=== PATIENT | male | born 1955 | race Caucasian/White ===

== ENCOUNTER → 2016-06-06 | Outpatient (CLI) | payer BC ==
[~2016-06-06] MED LIST: ACET-1256 PO; AMX500 PO; ASPI-232 PO; CIPR-255 PO; CRS20 PO; DVN80 PO; FLM4 PO; NTRGSL/4 UT; NXM/40 PO; TPRSR/25 PO
[2016-06-06 10:42] LABS: BASO % 0.2 %; BASO ABS # 0.02 K/uL (0-0.2); COMPLETE YES; EOS % 0.8 %; HEMATOCRIT 41.1 % (42-52); IG% 0.2 %; LYMPH % 16.4 %; LYMPH ABS # 1.55 K/uL (1.2-3.4); MEAN CELL VOLUME 92.4 fL (80-100); MEAN CORPUSCULAR HEMOGLOBIN 32.4 pg (25-34); MONO % 12.4 %; PLATELET COUNT 283 K/uL (130-400); RED BLOOD COUNT 4.45 M/uL (4.7-6.1); WHITE BLOOD COUNT 9.44 K/uL (4.8-10.8)
[2016-06-06 11:11] LABS: ALT/SGPT 40 U/L (12-78); AST/SGOT 32 U/L (15-37); BLOOD UREA NITROGEN 29 mg/dl (7-18); BUN/CREATININE RATIO 24.5 (10-20); CALCIUM 9.7 mg/dl (8.5-10.1); CARBON DIOXIDE 25 mmol/L (21-32); CHLORIDE 105 mmol/L (98-107); CHOLESTEROL 145 mg/dl (0-200); GLUCOSE 93 mg/dl (70-99); POTASSIUM 4.1 mmol/L (3.5-5.1); SODIUM 138 mmol/L (136-145); TRIGLYCERIDES 90 mg/dl (0-150); VERY LOW DENSITY LIPOPROT CALC 18 mg/dl
[2016-06-06 11:14] LABS: ALB/GLOB RATIO 0.9 (0.9-2); ALKALINE PHOSPHATASE 106 U/L (45-117); HDL CHOLESTEROL 48 mg/dl; LDL CHOLESTEROL CALCULATED 79 mg/dl
[2016-06-06 11:20] LABS: BLOOD UREA NITROGEN 30 mg/dl (7-18)
== END | disposition home or self-care (01) ==
LOC: C.LABBC 08:06
PROVIDERS: ATTEND Internal Medicine Geriatric Medicine
DX: I25.10 Atherosclerotic heart disease of native coronary artery without angina pectoris (principal); I10 Essential (primary) hypertension; E78.5 Hyperlipidemia, unspecified

== ENCOUNTER → 2016-07-18 | Day surgery (SDC) | payer BC, OTHER ==
[2016-07-10 12:16] VITALS: BMI 28.0
[~2016-07-18] VITALS: Ht 180.3 cm; Wt 90.9 kg
[~2016-07-18] MED LIST changes: -ACET-1256 PO; -CIPR-255 PO; -FLM4 PO; +LIDOCAINE HCL 2% 2 ML VIAL (20MG/ML) ONE; +METOPROLOL TARTRATE 1 MG/ML VIAL ONE; -NXM/40 PO; +PROPOFOL IV EMULSION 10 MG/ML 20 ML VIAL IV ONE
--- NOTE | 2016-07-18 13:53 | Endo History and Physical ---
History & Physical Date of Service: July 18, 2016. Chief Complaint: History of colon polyps Referring Physician: Avery Pacheco History of Present Illness 61 yo CM who presents for colonoscopy secondary to history of colon polyps. Past Medical History Reflux, High Cholesterol, Sleep Apnea, CABG, Hypertension Past Surgical History Hx Cardiac Surgery: Yes (HEART CATH-NO STENTS, CABG-2 VESSELS AND MITRAL VALVE REPAIR) Hx Internal Defibrillator: No Hx Pacemaker: No Hx Abdominal Surgery: Yes (APPY, INGUINAL HERNIA) Hx of Implantable Prosthesis: No Hx Post-Op Nausea and Vomiting: No Hx Cancer Surgery: No Hx Thoracic Surgery: No Hx Orthopedic: Yes (RT RING FINGER AMPUTATION RECONSTRUCTION; RT KNEE ARTHROSCOPY, RT EBLOW SX) Hx Urinary Tract Surgery: Yes (GREENLIGHT TURP) Family History Colon CA Social History Smoking Status: Never Smoker Hx Substance Use: No Hx Alcohol Use: Yes ("SOCIALLY") Allergies Coded Allergies: No Known Allergies (Unverified , 07/10/16) Current Medications Reported Home Medications Medications Dose Route/Sig Max Daily Dose Days Date Category Diovan (Valsartan) 80 Mg Tab 80 Mg PO QAM 07/10/16 Reported Amoxicillin 500 Mg Cap 4 Cap PO UD PRN 03/02/15 Reported Nitrostat (Nitroglycerin) 0.4 Mg Tab 0.4 Mg UT PRN 03/02/15 Reported Metoprolol Succinate ER (Metoprolol Succinate) 25 Mg Tabcr 25 Mg PO QAM 03/02/15 Reported Crestor (Rosuvastatin Calcium) 20 Mg Tab 40 Mg PO HS 03/02/15 Reported Aspir-81 (Aspirin) 81 Mg Tab 81 Mg PO QAM 06/02/12 Reported Vital Signs Weight (Kilograms): 90.91 Height (Feet): 5 Height (Inches): 11 Physical Exam General Appearance: WD/WN, no apparent distress Respiratory/Chest: Auscultation: breath sounds normal Cardiovascular: Heart Auscultation: RRR Abdomen: Bowel Sounds: normal Inspection & Palpation: soft, non-distended, no tenderness, guarding & rebound Assessment and Plan Assessment: 61 yo CM who presents for colonoscopy secondary to history of colon polyps. Plan: Proceed with colonoscopy.
[2016-07-18 13:54] VITALS: Ht 180.3 cm; Wt 90.9 kg
--- NOTE | 2016-07-18 15:00 | GI REPORT ---
Procedure Date: 07/18/2016 2:26 PM Procedure: Colonoscopy Indications: High risk colon cancer surveillance: Personal history of colonic polyps Medicines: Monitored Anesthesia Care Complications: No immediate complications. Estimated Blood Loss: Estimated blood loss: none. Procedure: Pre-Anesthesia Assessment: - Prior to the procedure, a History and Physical was performed, and patient medications and allergies were reviewed. The patient's tolerance of previous anesthesia was also reviewed. The risks and benefits of the procedure and the sedation options and risks were discussed with the patient. All questions were answered, and informed consent was obtained. Prior Anticoagulants: The patient has taken aspirin, last dose was 1 day prior to procedure. ASA Grade Assessment: III - A patient with severe systemic disease. After reviewing the risks and benefits, the patient was deemed in satisfactory condition to undergo the procedure. After I obtained informed consent, the scope was passed under direct vision. Throughout the procedure, the patient's blood pressure, pulse, and oxygen saturations were monitored continuously. The On-site loaner was introduced through the anus and advanced to the terminal ileum. The colonoscopy was performed without difficulty. The patient tolerated the procedure well. The quality of the bowel preparation was good. The terminal ileum, ileocecal valve, appendiceal orifice, and rectum were photographed. Findings: A 3 mm polyp was found in the ascending colon. The polyp was sessile. The polyp was removed with a cold snare. Resection and retrieval were complete. Multiple small-mouthed diverticula were found in the sigmoid colon. Non-bleeding internal hemorrhoids were found during retroflexion. The hemorrhoids were small. Impression: - One 3 mm polyp in the ascending colon, removed with a cold snare. Resected and retrieved. - Diverticulosis in the sigmoid colon. - Non-bleeding internal hemorrhoids. Recommendation: - Resume previous diet. - Continue present medications. - Repeat colonoscopy for surveillance based on pathology results. - Return to GI office as previously scheduled. Kun Teague, 07/18/2016 3:00:09 PM This report has been signed electronically. Note Initiated On: 07/18/2016 2:26 PM I attest to the content of the Intraoperative Record and orders documented therein, exceptions below
--- NOTE | 2016-07-18 15:02 | Discharge Instructions ---
Endoscopy Patient Instructions Date / Procedure(s) Performed July 18, 2016. Colonoscopy Allergy Information Coded Allergies: No Known Allergies (Verified , 07/18/16) Discharge Date / Findings July 18, 2016. Colon polyp Diverticulosis Internal hemorrhoids Provider Instructions Activity Restrictions - No exercising or heavy lifting for 24 hours. - Do not drink alcohol the day of the procedure. - Do not drive a car or operate machinery until the day after the procedure. - Do not make any important decisions or sign important papers in 24 hours after the procedure. Following Day: - Return to full activity which may include returning to work/school. Diet Start your diet with liquids and light foods (jello, soup, juice, toast). Then eat your usual diet if not nauseated. Treatment For Common After Affects For mild abdominal pain, bloating, or excessive gas: - Rest - Eat lightly - Lie on right side Follow-Up Information Follow-up with DR. KYRIE GRAFF as scheduled Anesthesia Information What You Should Know You have had a procedure that required some medicine to reduce anxiety and discomfort. This treatment is called moderate sedation. After receiving the treatment, you may be sleepy, but you will be able to breathe on your own. The effects of the treatment may last for several hours. Follow these instructions along with Activity/Diet recommendations noted above: * Do NOT do anything where dizziness or clumsiness would be dangerous. * Rest quietly at home today, then you can be up and about tomorrow. * Have a responsible person stay with you the rest of today. * You may have had an I.V. today. If so, you may take the dressing off later today. Recommendations Call your doctor if: * Trouble breathing * Continuous vomiting for more than 24 hours * Temperature above 101 degrees * Severe abdominal pain or bloating * Pain not relieved by pain medicine ordered * There is increased drainage or redness from any incision * A large amount of rectal bleeding greater than 2-3 tablespoons. (If you had a polyp/s removed or have hemorrhoids, a small amount of blood - from the rectum is to be expected.) * You have any unanswered questions or concerns. IN THE EVENT OF A SERIOUS EMERGENCY, GO TO THE NEAREST EMERGENCY ROOM Your discharge instructions were prepared by provider Kun Teague. Patient Instructions Signature Page Loki Mckeon Patient (or Guardian) Signature/Date: I have read and understand the instructions given to me by my caregivers. Caregiver/RN/Doctor Signature/Date: The above-named patient and/or guardian has received patient instructions on this date. + Original Patient Signature Page (only) stays with chart. Please make copy for patient.
--- NOTE | 2016-07-18 15:09 | Anesthesiology Progress Note ---
Anesthesia Post Op Note Date & Time July 18, 2016 at 15:08 Vital Signs Pain Intensity: 0 Vital Signs Past 12 Hours Date Time Temp Pulse Resp B/P Pulse Ox O2 Delivery O2 Flow Rate FiO2 07/18/16 14:59 50 12 104/61 97 Room Air 07/18/16 14:01 36.7 53 16 138/78 95 Room Air Notes Mental Status: alert / awake / arousable, participated in evaluation Pt Amnestic to Procedure: Yes Nausea / Vomiting: adequately controlled Pain: adequately controlled Airway Patency, RR, SpO2: stable & adequate BP & HR: stable & adequate Hydration State: stable & adequate Anesthetic Complications: no major complications apparent Pt doing well.
[2016-07-18 15:29] VITALS: BP 108/74; PULSE 48; O2SAT 97
== END | disposition home or self-care (01) ==
LOC: C.GI 13:19
PROVIDERS: ATTEND Internal Medicine
DX: Z12.11 Encounter for screening for malignant neoplasm of colon (principal); D12.2 Benign neoplasm of ascending colon; K57.30 Diverticulosis of large intestine without perforation or abscess without bleeding; K64.8 Other hemorrhoids; Z86.010 Personal history of colon polyps; I10 Essential (primary) hypertension; E78.00 Pure hypercholesterolemia, unspecified; K21.9 Gastro-esophageal reflux disease without esophagitis; G47.30 Sleep apnea, unspecified; Z95.1 Presence of aortocoronary bypass graft; Z79.82 Long term (current) use of aspirin; Z79.899 Other long term (current) drug therapy; Z80.0 Family history of malignant neoplasm of digestive organs

== ENCOUNTER → 2017-06-23 | Outpatient (CLI) | payer BC ==
[~2017-06-23] MED LIST changes: -LIDOCAINE HCL 2% 2 ML VIAL (20MG/ML) ONE; -METOPROLOL TARTRATE 1 MG/ML VIAL ONE; +OPTIRAY 320 IV PRN; -PROPOFOL IV EMULSION 10 MG/ML 20 ML VIAL IV ONE
--- NOTE | 2017-06-23 13:48 | DIAGNOSTIC IMAGING REPORT ---
CHEST COMBO ANGIOGRAPHY CLINICAL HISTORY: 62 years-old Male presenting with ^I77.810 ^ASCENDING AORTA DILATATION, DILATED AORTIC ROOT. TECHNIQUE: Multidetector CT angiography of the chest was performed before and after the administration of intravenous contrast. 3-D volumetric and/or maximum intensity projection (MIP) images were subsequently reconstructed for review. IV contrast: 120 mL of Optiray 320. A dose lowering technique was used consistent with the principles of ALARA (as low as reasonably achievable). COMPARISON: None. CT DOSE (mGy.cm): The estimated cumulative dose is 1352.31 mGycm. FINDINGS: Voice Professor topogram: Median sternotomy wires and prosthetic mitral valve noted. Vasculature: The study is adequate for assessment of the aorta. Precontrast imaging demonstrates no evidence of intramural hematoma. Postcontrast imaging demonstrates atherosclerosis and aneurysmal dilatation of the ascending aorta, which measures 4.7 cm in diameter. The descending thoracic aorta is normal in caliber. No evidence of dissection or penetrating ulcer. Allowing for timing of the contrast bolus, no gross evidence of a filling defect within the pulmonary arteries to suggest embolus. Main pulmonary artery is not enlarged. No flattening of the interventricular septum. No intracardiac filling defect. No reflux of contrast into the hepatic veins. Remaining chest: On soft tissue windows, normal thyroid and thoracic inlet. No axillary, supraclavicular, hilar, or mediastinal lymphadenopathy. Postsurgical changes of mitral valve replacement. Coronary artery calcification. Normal heart size. Postsurgical changes of coronary artery bypass grafting. No pericardial or pleural effusion. Upper abdomen normal. On lung windows, minimal dependent changes likely atelectasis. No other focal nodule or infiltrate. Airways patent. On bone windows, degenerative changes of the spine. IMPRESSION: 1. 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 No evidence of acute aortic injury. No acute intrathoracic pathology. 2. Post surgical changes of coronary artery bypass grafting and mitral valve replacement. Electronically signed by: Rigoberto Moss M.D. 06/23/2017 1:47 PM Dictated Date/Time: 06/23/2017 1:41 PM
[2017-06-23 14:39] LABS: BASO % 0.3 %; BASO ABS # 0.02 K/uL (0-0.2); EOS % 1.1 %; EOS ABS # 0.07 K/uL (0-0.5); HEMOGLOBIN 14.3 g/dL (14.0-18.0); IG# 0.01 K/uL (0.00-0.02); LYMPH % 30.3 %; LYMPH ABS # 1.89 K/uL (1.2-3.4); MEAN CELL VOLUME 91.3 fL (80-100); MEAN CORPUSCULAR HEMOGLOBIN 31.1 pg (25-34); MEAN PLATELET VOLUME 10.7 fL (7.4-10.4); MONO % 9.3 %; MONO ABS # 0.58 K/uL (0.11-0.59); NEUT % 58.8 %; NEUT ABS # 3.66 K/uL (1.4-6.5); PLATELET COUNT 265 K/uL (130-400); RED CELL DISTRIBUTION WIDTH CV 12.9 % (11.5-14.5); RED CELL DISTRIBUTION WIDTH SD 43.2 fL (36.4-46.3); WHITE BLOOD COUNT 6.23 K/uL (4.8-10.8)
[2017-06-23 15:16] LABS: ALBUMIN 3.8 gm/dl (3.4-5.0); ALT/SGPT 37 U/L (12-78); AST/SGOT 22 U/L (15-37); BLOOD UREA NITROGEN 19 mg/dl (7-18); CALCIUM 9.4 mg/dl (8.5-10.1); CARBON DIOXIDE 23 mmol/L (21-32); CREATININE 1.14 mg/dl (0.60-1.40); GLUCOSE 82 mg/dl (70-99); POTASSIUM 3.9 mmol/L (3.5-5.1); SODIUM 136 mmol/L (136-145)
[2017-06-23 15:22] LABS: ALKALINE PHOSPHATASE 66 U/L (45-117); CHOLESTEROL 238 mg/dl (0-200); LDL CHOLESTEROL CALCULATED 144 mg/dl; TOTAL PROTEIN 7.7 gm/dl (6.4-8.2)
== END | disposition home or self-care (01) ==
LOC: C.CTS 13:02
PROVIDERS: ATTEND Internal Medicine Cardiovascular Disease
DX: I77.810 Thoracic aortic ectasia (principal); I10 Essential (primary) hypertension; R97.20 Elevated prostate specific antigen [PSA]; E78.5 Hyperlipidemia, unspecified; G47.33 Obstructive sleep apnea (adult) (pediatric); M19.90 Unspecified osteoarthritis, unspecified site; Z95.5 Presence of coronary angioplasty implant and graft; Z95.2 Presence of prosthetic heart valve

== ENCOUNTER 2024-04-12 07:24 | Inpatient (IN) ==
--- OUTSIDE RECORDS SUMMARY | 2024-04-12 07:36 | External Medical Summary | Summary of Care ---
Author Name Unknown Organization [facility] Address [address] [place] [address] Phone [phone] Care Team Providers Care Motion Picture Narrator Name Role Phone Avery Pacheco MD Primary Care Provider [phone] Encounter Details Date Type Department Care Team (Late st Contact Info) Description 03/29/2024 Population Health External Data Unspecified Department Allergies No known active allergiesdocumented as of this encounter (statuses as of 03/29/2024) Medications valsartan (DIOVAN) 80 MG Tablet Take 80 mg by mouth daily. 1 tab daily 3 03/27/2015 Active Oxycodone-Aceta minophen 7.5-325 MG per tablet 1 tab every 4 hours as needed for pain 0 03/16/2015 Active Phenazopyridine HCl 200 MG Tablet 1 tab daily as needed for bladder pain 0 03/16/2015 Active Tadalafil 5 MG Oral Tablet (Cialis) take 1 tablet by mouth once daily 90 Tablet 2 03/23/2024 7:17 AM EST 11/03/2023 Active Losartan Potassium 50 MG Oral Tablet (Cozaar) take 1 tablet by mouth once daily in the morning 90 Tablet 2 01/20/2024 Active Ezetimibe 10 MG Oral Tablet (Zetia) take 1 tablet by mouth once daily 90 Tablet 06/04/2023 Active Celecoxib 200 MG Oral Capsule (CeleBREX) Take 1 Capsule by mouth daily. 90 Capsule 1 03/23/2024 7:17 AM EST 09/04/2023 Active Metoprolol Succinate ER 50 MG Oral Tablet Extended Release 24 Hour (toPROL XL) take 1 tablet by mouth once daily in the morning 90 Tablet 1 03/23/2024 7:17 AM EST 09/02/2023 Active Rosuvastatin Calcium 40 MG Oral Tablet (Crestor) take 1 tablet by mouth daily in the evening 90 Tablet 3 03/26/2024 1:42 PM EST 03/23/2024 Active documented as of this encounter (statuses as of 03/29/2024) Active Problems Problem Noted Date Diagnosed Date Multiple joint pain 05/29/2010 MURMURS AORTIC 05/29/2010 documented as of this encounter (statuses as of 03/29/2024) Social History Tobacco Use Types Packs/Day Years Used Date Smoking Tobacco: Never Comments:chews tobacco Alcohol Use Standard Drinks/Week Comments Yes 0 (1 standard drink = 0.6 oz pur e alcohol) social Utilities Answer Date Recorded Do you have trouble paying y our heating, water, or electric bill? (Adult - for ages 18 years and over) Not on file 08/26/2023 Is your family able to pay t he heat, water, or electric bill? (Household - for ages 0-17 years) Not on file 08/26/2023 Does your family have access to good internet? (Household - for ages 0-17 years) Not on file 08/26/2023 Social Connections Answer Date Recorded How often do you feel lonely or isolated from those around you? (Adult - for ages 18 years and over) Not on file 08/26/2023 Comments Unknown Sex and Gender Information Value Date Recorded Sex Assigned at Not on file Legal Sex Male 9:37 AM EDT Gender Identity Not on file Sexual Orientation Not on file documented as of this encounter Plan of Treatment Health Maintenance Due Date Last Done Comments Lipid Panel 1954 Depression Screening 1966 Hepatitis C Screening 02/29/1972 DTap/Tdap Vaccines (1 - Tdap) 1973 Mammogram 1994 Cologuard 1999 Colonoscopy 1999 Colorectal Cancer Screening 1999 Fecal Occult Blood Test 1999 Sigmoidoscopy 1999 Pneumococcal Vaccine: 50+ Ye ars (1 of 1 - PCV) 02/29/2004 Zoster Vaccines (1 of 2) 02/29/2004 COVID-19 Vaccine ( - 2023-2 5 season) 2023 Influenza Vaccine (FLU shot) (#1) 2023 HPV (Gardasil) Vaccine Aged Out No lo nger eligible based on patient's age to complete this topic Hepatitis B Vaccine Aged Out No longe r eligible based on patient's age to complete this topic MENINGOCOCCAL (MENACTRA/MENVEO) Aged Out No longer eligible based on patient's age to complete this topic documented as of this encounter Medical Devices Not on filedocumented as of this encounter Care Teams Motion Picture Narrator Relationship Specialty Start Date End Date Avery Pacheco MD [address] [facility] [address] [place] [address] PCP - General 07/16/00 documented as of this encounter
[2024-04-12 08:37] LABS: Basophils # (auto) 0.03 K/uL (0.00-0.20); Basophils % (auto) 0.1 %; Hematocrit (blood only) 42.3 % (42.0-52.0); Hemoglobin 14.8 g/dl (14.0-18.0); Immature Granulocytes # (auto) 0.11 K/uL (0.01-0.20); Immature Granulocytes % (auto) 0.5 %; Lymphocytes % (auto) 5.5 %; Mean Corpuscular Hemoglobin 32.2 pg (25.0-34.0); Mean Corpuscular Volume 92.2 fL (80.0-100.0); Mean Platelet Volume 10.7 fL (9.4-12.4); Monocytes % (auto) 8.4 %; Neutrophils # (auto) 17.18 K/uL (1.40-6.50); Neutrophils % (auto) 85.5 %; Platelet Count 223 K/uL (130-400); RDW Coefficient of Variation 12.4 % (11.5-14.5); RDW Standard Deviation 42.3 fL (36.4-46.3); Red Blood Count 4.59 M/uL (4.70-6.10); White Blood Count 20.12 K/ul (4.8-10.8)
[2024-04-12 08:47] LABS: Albumin Globulin Ratio 1.2 (0.9-2); Albumin Level 4.1 gm/dl (3.4-5.0); BUN Creatinine Ratio 13.1 (10-20); Bilirubin,Total 0.9 mg/dl (0.2-1.0); Calcium 10.5 mg/dl (8.6-10.3); Creatinine Clr Calc Pharmacy 79.2 ml/min; Globulin 3.5 gm/dl (2.5-4.0); Potassium 3.7 mmol/L (3.5-5.1); Total Protein 7.6 gm/dl (6.0-8.3)
--- NOTE | 2024-04-12 08:48 | Emergency Department Note ---
Impression & Plan Acute UTI (urinary tract infection), Acute urinary retention, Leukocytosis ED Provider Note HISTORY OF PRESENT ILLNESS: Patient is a 69-year-old male presenting with dysuria and inability to void. Patient reports that symptoms have been ongoing since Friday (3 days). He states that he went to [facility] 2 days ago and was prescribed Pyridium and Keflex. He reports that he has been on these medications but his symptoms been getting worse. He states that he is unable to void secondary to "excruciating" pain. He states that he has noticed some blood in his urine. He has had intermittent fevers for the last 48 hours. His last dose of an antipyretic was yesterday. He states he is got lower abdominal pain, specifically in the suprapubic region. He states that he is feels he is unable to fully empty his bladder secondary to the significant pain with peeing. ROS: as above PHYSICAL EXAM: Constitutional: Patient appears in no acute distress. HENT: Head: Normocephalic and atraumatic. Eyes: EOMI, PERRL Mouth/Throat: Mucous membranes moist. Neck: Trachea midline. Neck supple. Cardiovascular: RRR, No murmurs, rubs or gallops. Intact distal pulses. Pulmonary/Chest: No respiratory distress. Breath sounds clear and equal bilaterally. No wheezes or rales. Abdominal: Abdomen soft, no rebound or guarding. Suprapubic tenderness to palpation. Musculoskeletal: No edema, tenderness or deformity noted. Skin: Warm and dry. No rash, erythema, pallor or cyanosis Psychiatric: Appropriate mood and affect for situation. Neurological: Alert and keenly responsive. CN II-XII grossly intact, moving all extremities equally and fully. MDM: - Vitals signs stable. - History obtained via patient. History as above. - Chronic conditions affecting care: BPH; CAD (S/p CABG); HTN; HLD - Differential diagnoses include, but are not limited to: UTI; urinary retention; hydronephrosis; pyelonephritis; ureteral stone - Order placed for continuous cardiac monitoring. At this time, monitor showed rate of 68 bpm with normal sinus rhythm, per my interpretation. - External medical records reviewed. Primary care visit note dated 11/03/2023 was reviewed. Patient was seen for his annual visit. - Laboratory workup interpreted by myself showed leukocytosis (WBC 20.12); normal electrolytes other than hypercalcemia (Ca 10.5); normal procalcitonin - UA showed evidence of infection. Patient given 2 g IV Rocephin. Urine culture was sent. - CT abdomen/pelvis with IV contrast showed an enlarged prostate and mildly distended bladder with mild bladder wall thickening. - Nursing attempted to place a De catheter to help decompress the patient's distended bladder. They tried a 16 Vietnamese regular De catheter and a 16 Vietnamese coud catheter. However, significant resistance was met at the prostate and they were unable to pass the catheter. - Discussed case with urologist health education director, Dr. Gomez, at 10:55. He recommended attempting an 18 or 22-day. He states that if this does not work patient may need a procedure in the OR. - Patient given 4 mg IV zofran, 500 cc NS and 1g IV tylenol on arrival for symptomatic management - Discussion was had with case manager specialist about patient's case and need for admission - Hospitalist,Dr. Barrientos, consulted for admission [facility] ASSESSMENT AND PLAN: Diagnosis: Acute UTI; urinary retention; leukocytosis Plan: Admit Past Med/Surg History Problem List (Updated 04/12/24 @ 11:24 by Shannan Simon MD) Leukocytosis (Acute) Acute urinary retention (Acute) Acute UTI (urinary tract infection) (Acute) Large hiatal hernia Hyperlipidemia Erectile dysfunction Hx of CAB[place] x2 [place]2012[place] [place] of colon polyps Diverticulum of bladder Health care maintenance BPH with obstruction/lower urinary tract symptoms Chronic venous insufficiency Arthritis of right acromioclavicular joint Insomnia S/P mitral valve repair during CABG in 2012 at [facility] Prediabetes HbA1C 6.1% (12/2019) patient states related to taking oral steroids at the time. no problem since stopping the steroids. Osteoarthritis BPH (benign prostatic hyperplasia) Obstructive sleep apnea does not use device Mild cognitive impairment Neuropsych and neurology evaluation in the past. Brain MRI (12/23) demonstrating small vessel disease with small focus L thalamus suggestive of previous microhemorrhage Hypertension Ascending aortic aneurysm Mitral valve regurgitation S/p mitral valve repair (2012) Coronary artery disease S/p CABGx2 (2012) w/ GONCALVES to LAD, saphenous vein graft to diagonal Medical History Epigastric pain Postherpetic neuralgia Screening PSA (prostate specific antigen) Shingles outbreak Abdominal pain, acute, right upper quadrant Cognitive and behavioral changes Sleep apnea History of COVID-19 (~02/2020) Right rotator cuff tear Osteoarthritis of right knee Arthritis of right knee Hiatal hernia Bladder stone Tear of biceps muscle Obesity Diverticular disease GERD (gastroesophageal reflux disease) Degenerative disc disease Left inguinal hernia Depression Surgical History History of repair of rotator cuff History of right knee joint replacement (~03/2020) History of cardiac cath History of prostate biopsy Hx of inguinal hernia surgery (03/18/19) History of esophagogastroduodenoscopy (EGD) History of colonoscopy Hx of transurethral resection of prostate S/P right knee arthroscopy 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 Hx of appendectomy H/O hernia repair Family History Unknown Colon cancer Coronary heart disease Heart disease Hypertension Father Myocardial infarction Grandfather (Maternal) Prostate cancer Mother Colon cancer Other No family history of adverse response to anesthesia Denies family history of Ovarian cancer Breast cancer Social History Smoking Status: Never smoker Second Hand Exposure: No; Do You Dip or Chew Tobacco: No (hx of quit 2012); Hx Alcohol Use: Yes Alcohol type: beer Alcohol Intake Frequency: Monthly or Less Hx Substance Use: No Preferred Language: Korean Communication Ability: Effective Visual Impairment: No Limitations Hearing Ability: Normal Corporate Planning Manager Required: No Beliefs That Will Affect Care: None marital status: Current Living Situation: Spouse current occupational status: employed current occupation: Clerk [employer] Feels Safe at Home: Yes Childhood Exposure to Second-Hand Smoke: Yes Dental Care, Regularly: Yes Physical Activity Frequency: Daily Seatbelt Use: always Sunscreen Use: No Assistive Devices: Denture - Upper, Denture - Lower and Glasses Allergies Allergies Allergy/AdvReac Type Severity Reaction Status Date / Time atorvastatin [From Lipitor] AdvReac Mild myalgia Verified 02/16/24 15:28 Home Meds Home Medications Medication Instructions Recorded Confirmed aspirin 81 mg tablet,delayed 81 mg PO QAM 02/16/19 04/12/24 release (Adult Low Dose Aspirin) acetaminophen 500 mg capsule 500 mg PO DAILY PRN Pain 11/04/23 04/12/24 metoprolol succinate 50 mg 25 mg PO QAM 02/16/24 04/12/24 tablet,extended release 24 hr cephalexin 500 mg capsule 500 mg PO BID 04/12/24 04/12/24 phenazopyridine 100 mg tablet 100 mg PO DIRECTED PRN Other 04/12/24 04/12/24 Previous Rx's Medication Instructions Recorded celecoxib 200 mg capsule 200 mg PO DAILY #90 caps 10/20/23 sildenafil (pulm.hypertension) 20 20 mg PO DAILY PRN sexual activity 11/03/23 mg tablet #90 tabs tadalafil 5 mg tablet 5 mg PO DAILY #90 tabs 11/03/23 amoxicillin 500 mg capsule 500 mg PO UD PRN dental procedures 11/04/23 #4 caps esomeprazole magnesium 40 mg 40 mg PO DAILY #90 caps 11/04/23 capsule,delayed release ezetimibe 10 mg tablet (Zetia) 10 mg PO DAILY #90 tabs 11/18/23 losartan 50 mg tablet 50 mg PO QAM #90 tabs 01/20/24 rosuvastatin 40 mg tablet 40 mg PO QPM #90 tabs 03/23/24 Results & Data (ED) Vital Signs Vital Signs - 24 hr 04/12/24 07:31 04/12/24 08:02 04/12/24 08:04 Temperature 36.8 C Temperature Source Oral Pulse Rate 86 79 Pulse Rate [Apical] Respiratory Rate 20 18 Respiratory Effort / Characteristics Non-Labored Spontaneous Non-Labored Respiratory Depth Normal Normal Respiratory Pattern Regular Blood Pressure 131/77 Blood Pressure Mean 95 Pulse Oximetry 95 Oxygen Delivery Method Room Air Sepsis Recent Fever Within 48 Hours No Sepsis New/Unexplained Change in Mental Status N/A Sepsis Action Taken by Nursing No Action Required 04/12/24 10:00 Temperature Temperature Source Pulse Rate Pulse Rate [Apical] 68 Respiratory Rate 18 Respiratory Effort / Characteristics Respiratory Depth Normal Respiratory Pattern Blood Pressure Blood Pressure Mean Pulse Oximetry 96 Oxygen Delivery Method Room Air Sepsis Recent Fever Within 48 Hours Sepsis New/Unexplained Change in Mental Status Sepsis Action Taken by Nursing Laboratory Data 04/12/24 08:00 04/12/24 08:00 Lab Results 04/12/24 Range/Units 08:00 WBC 20.12 H (4.8-10.8) K/ul RBC 4.59 L (4.70-6.10) M/uL Hgb 14.8 (14.0-18.0) g/dl Hct 42.3 (42.0-52.0) % MCV 92.2 (80.0-100.0) fL MCH 32.2 (25.0-34.0) pg MCHC 35.0 (32.0-36.0) g/dL RDW Std Deviation 42.3 (36.4-46.3) fL RDW Coeff of Noah 12.4 (11.5-14.5) % Plt Count 223 (130-400) K/uL MPV 10.7 (9.4-12.4) fL Immature Gran % (Auto) 0.5 % Neut % (Auto) 85.5 % Lymph % (Auto) 5.5 % [place] % (Auto) 8.4 % Eos % (Auto) 0.0 % Baso % (Auto) 0.1 % Neut # (Auto) 17.18 H (1.40-6.50) K/uL Lymph # (Auto) 1.10 L (1.20-3.40) K/uL [place] # (Auto) 1.70 H (0.11-0.59) K/uL Eos # (Auto) 0.00 (0.00-0.50) K/uL Baso # (Auto) 0.03 (0.00-0.20) K/uL Immature Gran # (Auto) 0.11 (0.01-0.20) K/uL Sodium 135 L (136-145) mmol/L Potassium 3.7 (3.5-5.1) mmol/L Chloride 101 (98-107) mmol/L Carbon Dioxide 25 (21-32) mmol/L Anion Gap 9 (3-11) BUN 14 (6-23) mg/dl Creatinine 1.07 (0.6-1.4) mg/dl Est Cr Clr Drug Dosing 79.2 ml/min eGFR 74.65 BUN/Creatinine Ratio 13.1 (10-20) Glucose 121 H (70-99(Fasting)) mg/dl Calcium 10.5 H (8.6-10.3) mg/dl Total Bilirubin 0.9 (0.2-1.0) mg/dl AST 20 (13-39) U/L ALT 23 (7-52) U/L Alkaline Phosphatase 72 (34-104) U/L Total Protein 7.6 (6.0-8.3) gm/dl Albumin 4.1 (3.4-5.0) gm/dl Globulin 3.5 (2.5-4.0) gm/dl Albumin/Globulin Ratio 1.2 (0.9-2) Procalcitonin 0.25 (0-0.5) ng/ml Urine Color Dark Yellow Urine Appearance Cloudy A (Clear) Urine pH 6.5 (4.5-7.5) Ur Specific [place] 1.017 (1.000-1.030) Urine Protein 2+ H (Negative) Urine Glucose (UA) Negative (Negative) Urine Ketones 1+ H (Negative) Urine Blood 1+ H (Negative) Urine Nitrite Positive A (Negative) Urine Bilirubin Negative (Negative) Urine Urobilinogen Negative (Negative) Ur Leukocyte Esterase 2+ H (Negative) Urine WBC (Auto) >50 H (0-5) /hpf Urine RBC (Auto) 6-10 H (0-2) /hpf U Hyaline Cast (Auto) 3-5 H (0-2) /lpf U Epithel Cells (Auto) 0-2 (0-2) /hpf Urine Bacteria (Auto) None Seen (None Seen) Administered Medications Discontinued Medications Sodium Chloride (Nss) 500 mls @ 999 mls/hr IV .Q31M ONE Stop: 04/12/24 09:15 Last Infusion: 04/12/24 09:38 Dose: Infused Documented By: Admin: 04/12/24 08:55 Dose: 999 mls/hr Documented By: FACUNDO Acetaminophen (Ofirmev) 1,000 mg in 100 mls @ 400 mls/hr IV NOW STA Stop: 04/12/24 08:59 Last Infusion: 04/12/24 09:21 Dose: Infused Documented By: Admin: 04/12/24 08:55 Dose: 400 mls/hr Documented By: FACUNDO Ceftriaxone Sodium (Rocephin) 2,000 mg in 50 mls @ 100 mls/hr IV NOW STA Stop: 04/12/24 10:16 Last Infusion: 04/12/24 10:27 Dose: Infused Documented By: Admin: 04/12/24 09:56 Dose: 100 mls/hr Documented By: FACUNDO Ioversol (Optiray 320 100ml) 94 ml IV ONCE ONE Stop: 04/12/24 09:19 Last Admin: 04/12/24 09:18 Dose: 94 ml Documented By: AQSIM Ondansetron HCl (Ondansetron Inj 2 Mg/Ml 2 Ml Vial) 4 mg IV NOW STA Stop: 04/12/24 08:46 Last Admin: 04/12/24 08:55 Dose: 4 mg Documented By: FACUNDO Imaging Data Radiologist's Impression: Abdomen/Pelvis CT 04/12/24 08:45 CT OF THE ABDOMEN AND PELVIS WITH CONTRAST CLINICAL HISTORY: lower abd pain; UTI COMPARISON STUDY: CT of the abdomen and pelvis October 22, 2022. TECHNIQUE: Following IV administration of 94 mL of Optiray, axial images of the abdomen and pelvis were obtained from the lung bases to the proximal femurs. Images were reviewed in the axial, sagittal, and coronal planes. IV contrast was administered without complication. Automated exposure control was utilized for the study. A dose lowering technique was utilized adhering to the principles of ALARA. CT DOSE: 1405.41 mGy.cm FINDINGS: Visualized portions of the lung bases are unremarkable. There is a prosthetic mitral valve and a moderate sized hernia. No pneumatosis, free air or portal venous gas is present. Liver, spleen, adrenal glands, kidneys and pancreas are unremarkable. There is no biliary or pancreatic ductal dilatation. The prostate is enlarged, measuring 7.2 cm in transverse dimension. The bladder is mildly distended. Bladder wall thickening is similar to prior exam. There is mild adjacent stranding. There are no urinary calculi. There is no hydronephrosis. There is no evidence for a bowel obstruction. Note is made of extensive colonic diverticulosis without evidence for acute diverticulitis. There is no biliary or pancreatic ductal dilatation. No lymphadenopathy. IMPRESSION: 1. Enlarged prostate. Mildly distended bladder with mild bladder wall thickening and minimal adjacent stranding which be correlated with urinalysis. No hydronephrosis. No urinary calculi. 2. Extensive colonic diverticulosis. No evidence for acute diverticulitis. 3. No bowel obstruction. ACT 112: Negative or not required by law. Electronically signed by: Lucas Meza M.D. 04/12/2024 9:57 AM Discharge Plan Visit Data Chief Complaint: Unable to Void Stated Complaint: UNABLE TO VOID X 4 DAYS ED Provider: Shannan Simon Discharge Problem: Acute UTI (urinary tract infection), Acute urinary retention, Leukocytosis Forms Stand Alone Forms: [facility] Prescriptions Prescriptions: No Action celecoxib 200 mg capsule 200 mg PO DAILY Qty: 90 1RF ezetimibe [Zetia] 10 mg tablet 10 mg PO DAILY Qty: 90 3RF losartan 50 mg tablet 50 mg PO QAM Qty: 90 3RF rosuvastatin 40 mg tablet 40 mg PO QPM Qty: 90 3RF acetaminophen 500 mg capsule 500 mg PO DAILY PRN (Reason: Pain) esomeprazole magnesium 40 mg capsule,delayed release(DR/EC) 40 mg PO DAILY Qty: 90 1RF amoxicillin 500 mg capsule 500 mg PO UD PRN (Reason: dental procedures) Qty: 4 0RF Rx Instructions: Take 4 capsules orally 1 hour prior to dental procedure. metoprolol succinate 50 mg tablet extended release 24 hr 25 mg PO QAM tadalafil 5 mg tablet 5 mg PO DAILY Qty: 90 3RF sildenafil (pulm.hypertension) 20 mg tablet 20 mg PO DAILY PRN (Reason: sexual activity) Qty: 90 2RF Rx Instructions: Take 30 to 60 minutes prior to sexual activity. Start with 1 tab, can increase by 1 at a time up to maximum of 4 tabs (80 mg) for desired effect aspirin [Adult Low Dose Aspirin] 81 mg tablet,delayed release (DR/EC) 81 mg PO QAM phenazopyridine 100 mg tablet 100 mg PO DIRECTED PRN (Reason: Other) cephalexin 500 mg capsule 500 mg PO BID Referrals Referrals: Hans Snyder MD [Primary Care Provider] -
[2024-04-12] MEDS: SODIUM CHLORIDE 0.9% 500 ML IV ONE (08:55)
[2024-04-12] MEDS: ONDANSETRON INJ 2 MG/ML 2 ML VIAL IV STA (08:55)
[2024-04-12] MEDS: ACETAMINOPHEN 1,000 MG/100 ML VIAL IV STA (08:55)
[2024-04-12 09:14] LABS: Appearance Urine Cloudy (Clear); Bacteria Urine Automated None Seen (None Seen); Bilirubin Urine Negative (Negative); Blood Urine 1+ (Negative); Color Urine Dark Yellow; Epithelial Cell Urine Auto 0-2 /hpf (0-2); Glucose Urine UA Negative (Negative); Ketones Urine 1+ (Negative); Leukocyte Esterase Urine 2+ (Negative); Nitrite Urine Positive (Negative); Protein Urine 2+ (Negative); Specific Gravity Urine 1.017 (1.000-1.030); Urobilinogen Urine Negative (Negative); WBC Urine Automated >50 /hpf (0-5); pH Urine 6.5 (4.5-7.5)
[2024-04-12] MEDS: OPTIRAY 320 100ml IV ONE (09:18)
[2024-04-12] MEDS: cefTRIAXone SODIUM 2,000 MG/50 ML BAG IV STA (09:56)
--- NOTE | 2024-04-12 09:59 | CT Scan Report ---
CT OF THE ABDOMEN AND PELVIS WITH CONTRAST CLINICAL HISTORY: lower abd pain; UTI COMPARISON STUDY: CT of the abdomen and pelvis October 22, 2022. TECHNIQUE: Following IV administration of 94 mL of Optiray, axial images of the abdomen and pelvis we re obtained from the lung bases to the proximal femurs. Images were reviewed in the axial, sagittal, and coronal planes. IV contrast was administered without complication. Automated exposure control wa s utilized for the study. A dose lowering technique was utilized adhering to the principles of ALARA . CT DOSE: 1405.41 mGy.cm FINDINGS: Visualized portions of the lung bases are unremarkable. There is a prosthetic mitral valve and a moderate sized hernia. No pneumatosis, free air or portal venous gas is present. Liver, spleen, adrenal glands, kidneys and pancreas are unremarkable. There is no biliary or pancreatic ductal dila tation. The prostate is enlarged, measuring 7.2 cm in transverse dimension. The bladder is mildly dis tended. Bladder wall thickening is similar to prior exam. There is mild adjacent stranding. There are no urinary calculi. There is no hydronephrosis. There is no evidence for a bowel obstruction. Note i s made of extensive colonic diverticulosis without evidence for acute diverticulitis. There is no betina iary or pancreatic ductal dilatation. No lymphadenopathy. IMPRESSION: 1. Enlarged prostate. Mildly distended bladder with mild bladder wall thickening and minimal adjacent stranding which be correlated with urinalysis. No hydronephrosis. No urinary calculi. 2. Extensive colonic diverticulosis. No evidence for acute diverticulitis. 3. No bowel obstruction. ACT 112: Negative or not required by law. Electronically signed by: Lucas Meza M.D. 04/12/2024 9:57 AM
--- NOTE | 2024-04-12 10:53 | History & Physical Report ---
Date of Service April 12, 2024 Assessment & Plan (1) Acute UTI (urinary tract infection): (2) Acute urinary retention: (3) Hematuria: (4) BPH (benign prostatic hyperplasia): Plan Loki is a pleasant 69yo male with PMH of CABG, mitral valve repair, BPH, DANUTA, HTN, HLD, and CAD. He presented on 04/12 for dysuria, difficulty voiding, and burning with urination that began on Sunday 04/09. He originally went to [facility] on Friday, and was prescribed cephalexin and phenazopyridine for UTI. However, despite taking these medications, his symptoms have progressively worsened. He denies prior history of UTIs or kidney stones. He is still able to void approximately a "quarter cup" of urine, but this leads to severe, sharp pain, and he cannot void without screaming. He characterizes it as "peeing razor blades". #UTI Failure of outpatient antibiotics on Keflex (Rx 04/10) Leukocytosis at 20.12 with neutral predominance; afebrile on arrival, but reported fever/chills at home Blood cultures ordered, pending Procalcitonin WNL UA dark yellow; without bacteria (but in the setting of recent Keflex) No prior UCx on record Ceftriaxone 2000 mg IV q24h for now Acetaminophen as needed for pain/fever Continue phenazopyridine Follow current UCx #Difficulty voiding A/P CT revealed enlarged prostate and mildly distended bladder No evidence of urinary calculi, however A/P CT was performed with contrast Nursing staff has been unable to place a De in the ED Urology consult appreciated N.p.o. for now in the event that patient requires scope Continue tadalafil #Gross hematuria Hgb 14.8 on arrival Patient reports he takes aspirin daily for history of CAD/CABG He denies history of heart stents Hold aspirin for now Chronic stable issues: #HTNlosartan, metoprolol #GERDesomeprazole #HLDezetimibe, rosuvastatin #BPHtadalafil Disposition: Admit to [facility] Full code Regular diet VTE PPx: SCDs History of Present Illness Chief Complaint: Unable to void, burning with urination Primary Care Provider: Hans Snyder MD Loki is a pleasant 69yo male with PMH of CABG, mitral valve repair, BPH, DANUTA, HTN, HLD, and CAD. He presented on 04/12 for dysuria, difficulty voiding, and burning with urination that began on Sunday 04/09. He originally went to [facility] on Friday, and was prescribed cephalexin and phenazopyridine for UTI. However, despite taking these medications, his symptoms have progressively wo rsened. He denies prior history of UTIs or kidney stones. He is still able to void approximately a "quarter cup" of urine, but this leads to severe, sharp pain, and he cannot void without screaming. He characterizes it as "peeing razor blades". Patient took his regular morning medicine today; no recent change in medications. He has been experiencing fevers at home; while he has not measured his temperature, he had a low-grade fever at acute care on Friday (100.1 F), and has been having worsening fevers and chills since. He has been taking Tylenol at home for his symptoms. No prior episodes of urinary continence like this. He does follow-up with Dr. Pete urology outpatient. He rates his pain 2/10 at present, and describes it as a suprapubic fullness. He rates it 10/10 while peeing. No sick contacts. No submental oxygen or CPAP at baseline. He does take tadalafil daily for his prostate. Additionally he does have occasional right flank pain and right lower back pain when walking, but he is unsure if this is secondary to his chronic back problems. He denies smoking or recent alcohol use. He is a former tobacco chewer, but quit in 2012. Patient's vitals are stable at time admission. ED course: Zofran 4 mg IV Acetaminophen 1000 mg IV NSS 500 mL IV Ceftriaxone 2000 mg IV ROS: Patient endorses fevers, chills, body aches, sweating, lightheadedness with standing, MAXWELL, dry cough, right flank and lower back pain, nausea, diarrhea x 1 day, blood in urine, severe dysuria, and burning with urination. Patient denies chest pain, SOB, chest palpitations, pleuritic CP, blood in stool, saddle anesthesia, or numbness/tingling down the legs. Allergies Allergy/AdvReac Type Severity Reaction Status Date / Time atorvastatin [From Lipitor] AdvReac Mild myalgia Verified 02/16/24 15:28 Home Medications Medication Instructions Recorded Confirmed Type aspirin 81 mg tablet,delayed 81 mg PO QAM 02/16/19 04/12/24 History release (Adult Low Dose Aspirin) celecoxib 200 mg capsule 200 mg PO DAILY #90 caps 10/20/23 04/12/24 Rx sildenafil (pulm.hypertension) 20 20 mg PO DAILY PRN sexual activity 11/03/23 04/12/24 Rx mg tablet #90 tabs tadalafil 5 mg tablet 5 mg PO DAILY #90 tabs 11/03/23 04/12/24 Rx acetaminophen 500 mg capsule 500 mg PO DAILY PRN Pain 11/04/23 04/12/24 History amoxicillin 500 mg capsule 500 mg PO UD PRN dental procedures 11/04/23 04/12/24 Rx #4 caps esomeprazole magnesium 40 mg 40 mg PO DAILY #90 caps 11/04/23 04/12/24 Rx capsule,delayed release ezetimibe 10 mg tablet (Zetia) 10 mg PO DAILY #90 tabs 11/18/23 04/12/24 Rx losartan 50 mg tablet 50 mg PO QAM #90 tabs 01/20/24 04/12/24 Rx metoprolol succinate 50 mg 25 mg PO QAM 02/16/24 04/12/24 History tablet,extended release 24 hr rosuvastatin 40 mg tablet 40 mg PO QPM #90 tabs 03/23/24 04/12/24 Rx cephalexin 500 mg capsule 500 mg PO BID 04/12/24 04/12/24 History phenazopyridine 100 mg tablet 100 mg PO DIRECTED PRN Other 04/12/24 04/12/24 History Past Med/Surg History Problem List (Updated 04/12/24 @ 11:35 by Demetris Ibarra PA-C) Hematuria Leukocytosis (Acute) Acute urinary retention (Acute) Acute UTI (urinary tract infection) (Acute) Large hiatal hernia Hyperlipidemia Erectile dysfunction Hx of CABG CABG x2 (2012)/[facility] History of colon polyps Diverticulum of bladder Health care maintenance BPH with obstruction/lower urinary tract symptoms Chronic venous insufficiency Arthritis of right acromioclavicular joint Insomnia S/P mitral valve repair during CABG in 2012 at [facility] Prediabetes HbA1C 6.1% (12/2019) patient states related to taking oral steroids at the time. no problem since stopping the steroids. Osteoarthritis BPH (benign prostatic hyperplasia) Obstructive sleep apnea does not use device Mild cognitive impairment Neuropsych and neurology evaluation in the past. Brain MRI (12/23) demonstrating small vessel disease with small focus L thalamus suggestive of previous microhemorrhage Hypertension Ascending aortic aneurysm Mitral valve regurgitation S/p mitral valve repair (2012) Coronary artery disease S/p CABGx2 (2012) w/ GONCALVES to LAD, saphenous vein graft to diagonal Medical History Epigastric pain Postherpetic neuralgia Screening PSA (prostate specific antigen) Shingles outbreak Abdominal pain, acute, right upper quadrant Cognitive and behavioral changes Sleep apnea History of COVID-19 (~02/2020) Right rotator cuff tear Osteoarthritis of right knee Arthritis of right knee Hiatal hernia Bladder stone Tear of biceps muscle Obesity Diverticular disease GERD (gastroesophageal reflux disease) Degenerative disc disease Left inguinal hernia Depression Surgical History History of repair of rotator cuff History of right knee joint replacement (~03/2020) History of cardiac cath History of prostate biopsy Hx of inguinal hernia surgery (03/18/19) History of esophagogastroduodenoscopy (EGD) History of colonoscopy Hx of transurethral resection of prostate S/P right knee arthroscopy 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 Hx of appendectomy H/O hernia repair Family History Unknown Colon cancer Coronary heart disease Heart disease Hypertension Father Myocardial infarction Grandfather (Maternal) Prostate cancer Mother Colon cancer Other No family history of adverse response to anesthesia Denies family history of Ovarian cancer Breast cancer Social History Smoking Status: Never smoker Second Hand Exposure: No; Do You Dip or Chew Tobacco: No (hx of quit 2012); Hx Alcohol Use: Yes Alcohol type: beer Alcohol Intake Frequency: Monthly or Less Hx Substance Use: No Preferred Language: [place]al[place] Communication Ability: Effective Visual Impairment: No Limitations Hearing Ability: Normal Pathology Secretary Required: No Beliefs That Will Affect Care: None marital status: Current Living Situation: Spouse current occupational status: employed current occupation: Supervisor [employer] Feels Safe at Home: Yes Childhood Exposure to Second-Hand Smoke: Yes Dental Care, Regularly: Yes Physical Activity Frequency: Daily Seatbelt Use: always Sunscreen Use: No Assistive Devices: Denture - Upper, Denture - Lower and Glasses Review of Systems Review of Systems: See HPI above Physical Exam Physical Exam: General: no acute distress; pleasant affect; non-toxic appearing; well- nourished; cooperative; SpO2 96% on room HEENT: normocephalic, atraumatic; no scleral icterus; PERRLA; vision and hearing grossly intact Neck: supple; no lymphadenopathy; trachea midline Skin: warm, dry without signs of tenting; no cyanosis; no rashes, bruising, lesions, or erythema noted CV: chest wall NTP; RRR; S1/S2 normal; no murmurs/rubs/gallops; pulses intact an d symmetric at radial, DP, and PT Lungs: no acute respiratory distress; symmetrical chest wall expansion; clear breath sounds across all lung pabon w/o adventitious sounds; no wheezing ABD: Soft; BS present; no rebound/guarding; no distention; right lower quadrant and flank are mildly TTP; mild suprapubic pressure/tenderness; no rashes or bruising appreciated on the abdomen or flanks bilaterally Back: Negative CVA tenderness bilaterally MSK: no tics or fasciculations; no edema noted in the LEs b/l, nonerythematous Neuro: A&Ox3; normal mood and affect; fluent speech; no focal deficits; sensati on is intact and symmetric in lower extremities bilaterally assessed via light touch Results & Data Results & Data Vital Signs (Past 12 Hours) Vital Signs Temp Pulse Pulse Resp BP Pulse Ox O2 Del Method 04/12/24 10:00 68 18 96 Room Air 04/12/24 08:04 18 04/12/24 08:02 79 04/12/24 07:31 36.8 C 86 20 131/77 95 Room Air Laboratory Results Abnormal lab results 04/12/24 Range/Units 08:00 WBC 20.12 H (4.8-10.8) K/ul RBC 4.59 L (4.70-6.10) M/uL Neut # (Auto) 17.18 H (1.40-6.50) K/uL Lymph # (Auto) 1.10 L (1.20-3.40) K/uL Ralls # (Auto) 1.70 H (0.11-0.59) K/uL Sodium 135 L (136-145) mmol/L Glucose 121 H (70-99(Fasting)) mg/dl Calcium 10.5 H (8.6-10.3) mg/dl Urine Appearance Cloudy A (Clear) Urine Protein 2+ H (Negative) Urine Ketones 1+ H (Negative) Urine Blood 1+ H (Negative) Urine Nitrite Positive A (Negative) Ur Leukocyte Esterase 2+ H (Negative) Urine WBC (Auto) >50 H (0-5) /hpf Urine RBC (Auto) 6-10 H (0-2) /hpf U Hyaline Cast (Auto) 3-5 H (0-2) /lpf Diagnostic Findings Abdomen/Pelvis CT 04/12/24 08:45 CT OF THE ABDOMEN AND PELVIS WITH CONTRAST CLINICAL HISTORY: lower abd pain; UTI COMPARISON STUDY: CT of the abdomen and pelvis October 22, 2022. TECHNIQUE: Following IV administration of 94 mL of Optiray, axial images of the abdomen and pelvis were obtained from the lung bases to the proximal femurs. Images were reviewed in the axial, sagittal, and coronal planes. IV contrast was administered without complication. Automated exposure control was utilized for the study. A dose lowering technique was utilized adhering to the principles of ALARA. CT DOSE: 1405.41 mGy.cm FINDINGS: Visualized portions of the lung bases are unremarkable. There is a prosthetic mitral valve and a moderate sized hernia. No pneumatosis, free air or portal venous gas is present. Liver, spleen, adrenal glands, kidneys and pancreas are unremarkable. There is no biliary or pancreatic ductal dilatation. The prostate is enlarged, measuring 7.2 cm in transverse dimension. The bladder is mildly distended. Bladder wall thickening is similar to prior exam. There is mild adjacent stranding. There are no urinary calculi. There is no hydronephrosis. There is no evidence for a bowel obstruction. Note is made of extensive colonic diverticulosis without evidence for acute diverticulitis. There is no biliary or pancreatic ductal dilatation. No lymphadenopathy. IMPRESSION: 1. Enlarged prostate. Mildly distended bladder with mild bladder wall thickening and minimal adjacent stranding which be correlated with urinalysis. No hydronephrosis. No urinary calculi. 2. Extensive colonic diverticulosis. No evidence for acute diverticulitis. 3. No bowel obstruction. ACT 112: Negative or not required by law. Electronically signed by: Lucas Meza M.D. 04/12/2024 9:57 AM Code Status & VTE Plan Code Status Full code VTE Prophylaxis Plan VTE Prophylaxis will be ordered: Yes Supervising Physician Co-Signing Physician Notes I have personally seen, evaluated and examined the patient. I have also personally discussed the management of the patient with the resident physician/LUCIA and I agree with the exam findings documented in the history and physical examination and the documented assessment and plan unless otherwise stated below. Brief Exam: In general very pleasant 69-year-old male was alert and orient x 3 at time my exam. Urology at the bedside could not obtain bladder catheterization at the bedside the patient had to go to the OR. HEENT: Normocephalic atraumatic. Heart: Regular rate and rhythm no murmurs.. Lungs: Clear bilaterally. Abdomen: Soft mildly distended suprapubic region mildly tender. No rebound. No peritoneal sign. Extremities: Intact no clubbing cyanosis or edema. Neurologically: Alert and oriented x 3. No focal deficit. Assessment/plan: As discussed above. Please refer to orders for further planning. PG Care Time/CCT Total # of Minutes Spent Total Time Spent with Patient: Total time spent is greater than 50% in coordination of care (as documented) at patient's floor/unit and/or counseling patient: Coding [place] [address] INT INP/OBS CARE 3/75MIN Patient Type Established Medical Decision Making High Complexity Diagnoses Acute UTI (urinary tract infection) N39.0 Acute urinary retention R33.8 Hematuria R31.9 BPH (benign prostatic hyperplasia) N40.0
--- NOTE | 2024-04-12 12:13 | Urology Consultation ---
Date of Consultation April 12, 2024 Assessment & Plan (1) BPH (benign prostatic hyperplasia): (2) Acute urinary retention: (3) Acute UTI (urinary tract infection): 69-year-old male with history of BPH and lower urinary tract symptoms admitted for acute urinary retention and concern for UTI. Patient currently afebrile and hemodynamically stable Labs reviewedcreatinine 1.07, leukocytosis of 20.12 Urinalysis is somewhat suspicious for infection with 2+ leukocyte esterase, nitrates, >50 WBC/hpf; though negative for bacteria Urine culture pending CT abdomen pelvis notable for a significantly enlarged prostate, mildly distended bladder with some bladder wall thickening Nursing attempted catheter placement x 2 without success I attempted placement of 18 Fr coude catheter at bedside in ED, which advanced well but no urine outputsuspect possible false passage Discussed intervention with cystoscopy and placement of Good catheter in OR and patient is agreeable Proceed to OR for cystoscopy and Good catheter placement today with Dr. Gomez Keep NPO for procedure Plan to keep catheter for approximately 1-2 weeks Continue with broad-spectrum antibiotics and tailor to sensitivities when available Recommend start Tamsulosin and consider addition of 5-MINERVA will follow, please contact our service with any additional questions, concerns or changes in clinical status Attending note: Patient in significant urinary retention with obstruction and very large prostate. Had been following with Dr. Pete and previously with Dr. Romero due to severe prostate enlargement and lower urinary tract symptoms. Developed retention with incomplete emptying and worsening bother pain discomfort and inability to void. Patient independently assessed, examined, interviewed, and evaluated. Agree with note as above. Patient's vitals and labs were all reviewed. Pertinent values in the HPI and plan section. Imaging was reviewed interpreted by myself. Agree with read. Vitals were reviewed. Discussed findings extensively with patient and family. Reviewed with nurse practitioner as well as consulting physicians/team. Imaging was assessed. Does have a extreme large prostate with distended bladder and no signs of hydronephrosis Patient's complicated medical and surgical history was reviewed and summarized above. Patient's surgical, medical, social, and family history were all reviewed with pertinent values as above. Discussed patient's current diagnosis as well as concerns and issues. Reviewed different options moving forward. Discussed potential risks and benefits as well as possible options and concerns. Reviewed potential surgical options and interventions. Discussed potential issues and concerns related to intervention. Risk and benefits were discussed extensively with patient and any available family. Discussed potential risks related to anesthesia. Discussed risks of bleeding infection and injury. Discussed inability to pass catheter. Discussed possible causes obstruction. Discussed stricture or other problems or issues. Reviewed extensively different options. Risks and benefits discussed at length for procedure. These include bleeding, infection, injury to surrounding tissues or organs, and risks associated with anesthesia. Patient states understanding and agrees to proceed. Will sign consent and schedule. Plan for cystoscopy with possible dilation with plan for urgent procedure due to retention and inability to void History of Present Illness Reason for Consultation: Unable to void; unable to place good Requesting Physician: Dr. Simon Attending Physician: Dr. Barrientos History of Present Illness This is a 69-year-old male who follows with urology for BPH with lower urinary tract symptoms and elevated PSA. Patient presented to the emergency department today on 04/12/2024 for dysuria and difficulty voiding x 3 days. He was evaluated at acute care 2 days ago and was started on Pyridium and Keflex. He had progressive worsening of symptoms including dysuria, hematuria, inability to void, and fevers at home despite medications prompting ED evaluation. On arrival to ED, he was afebrile and hemodynamically stable. Lab work showed white count of 20.12, neutrophils 17.18, hemoglobin 14.8, sodium 135, creatinine 1.07. Urinalysis showed 1+ blood, positive nitrates, 2+ LE, >50 WBC, 6-10 RBC, 0-2 epithelial cells, and no bacteria seen. CT abdomen and pelvis with contrast independently reviewed and showed a significantly enlarged prostate measuring 7.2 cm in transverse dimension, bladder mildly distended. Bladder wall thickening noted and mild adjacent stranding. No hydronephrosis or urinary calculi. Nursing attempted Good catheter placement x 2 without success. He has been treated with IV fluids, acetaminophen, ceftriaxone and ondansetron in the emergency department. Urology is consulted for Good catheter placement. Patient seen and examined in the emergency department. He is awake and resting in litter, no apparent distress. He reports difficulty voiding over the past several days with dysuria and some hematuria. Reports dribbling urine. He developed intermittent subjective fever and chills at home starting approximately 2 days ago. No nausea, vomiting, fever or chills at present. Some bladder pressure/discomfort at present. He follows with Dr. Pete as an outpatient and is on tadalafil for BPH and ED. He is status post Greenlight PVP of prostate several years ago. He has history of elevated PSAs with negative biopsies in the past. MRI of the prostate in November 2018 showed no suspicious lesions within the prostate gland, marked BPH with volume 148.12 mL. He has not had anything to eat or drink since yesterday. Allergies Allergy/AdvReac Type Severity Reaction Status Date / Time atorvastatin [From Lipitor] AdvReac Mild myalgia Verified 04/12/24 13:26 Home Medications Medication Instructions Recorded Confirmed Type aspirin 81 mg tablet,delayed 81 mg PO QAM 02/16/19 04/12/24 History release (Adult Low Dose Aspirin) celecoxib 200 mg capsule 200 mg PO DAILY #90 caps 10/20/23 04/12/24 Rx sildenafil (pulm.hypertension) 20 20 mg PO DAILY PRN sexual activity 11/03/23 04/12/24 Rx mg tablet #90 tabs tadalafil 5 mg tablet 5 mg PO DAILY #90 tabs 11/03/23 04/12/24 Rx acetaminophen 500 mg capsule 500 mg PO DAILY PRN Pain 11/04/23 04/12/24 History amoxicillin 500 mg capsule 500 mg PO UD PRN dental procedures 11/04/23 04/12/24 Rx #4 caps esomeprazole magnesium 40 mg 40 mg PO DAILY #90 caps 11/04/23 04/12/24 Rx capsule,delayed release ezetimibe 10 mg tablet (Zetia) 10 mg PO DAILY #90 tabs 11/18/23 04/12/24 Rx losartan 50 mg tablet 50 mg PO QAM #90 tabs 01/20/24 04/12/24 Rx metoprolol succinate 50 mg 25 mg PO QAM 02/16/24 04/12/24 History tablet,extended release 24 hr rosuvastatin 40 mg tablet 40 mg PO QPM #90 tabs 03/23/24 04/12/24 Rx cephalexin 500 mg capsule 500 mg PO BID 04/12/24 04/12/24 History phenazopyridine 100 mg tablet 100 mg PO DIRECTED PRN Other 04/12/24 04/12/24 History Patient History Medical History Epigastric pain Postherpetic neuralgia Screening PSA (prostate specific antigen) Shingles outbreak Abdominal pain, acute, right upper quadrant Cognitive and behavioral changes Sleep apnea History of COVID-19 (~02/2020) loss sense of smell. no other symptoms. no current problems Right rotator cuff tear Osteoarthritis of right knee Arthritis of right knee Hiatal hernia Bladder stone Tear of biceps muscle Obesity Diverticular disease GERD (gastroesophageal reflux disease) controlled Degenerative disc disease Left inguinal hernia Depression Surgical History History of repair of rotator cuff right History of right knee joint replacement (~03/2020) History of cardiac cath 2013- no stents, subsequently transported to [facility] for CABG/MVR History of prostate biopsy x3 Hx of inguinal hernia surgery (03/18/19) Open Left Inguinal Hernia Repair with Mesh: 03/18/19: LMA at [facility] History of esophagogastroduodenoscopy (EGD) History of colonoscopy Hx of transurethral resection of prostate S/P right knee arthroscopy History of amputation right hand, 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/P decompression of ulnar nerve at elbow Right Hx of appendectomy with umbilical hernia repair H/O hernia repair right inguinal as an Family History Unknown Colon cancer Coronary heart disease Heart disease Hypertension Father Myocardial infarction Grandfather (Maternal) Prostate cancer Mother Colon cancer Other No family history of adverse response to anesthesia Denies family history of Ovarian cancer Breast cancer Social History Smoking Status: Never smoker Second Hand Exposure: No; Do You Dip or Chew Tobacco: No (hx of quit 2012); Hx Alcohol Use: Yes Alcohol type: beer Alcohol Intake Frequency: Monthly or Less Hx Substance Use: No Preferred Language: Portuguese Communication Ability: Effective Visual Impairment: No Limitations Hearing Ability: Normal Florist Designer Required: No Beliefs That Will Affect Care: None marital status: Current Living Situation: Family current occupational status: employed current occupation: Rig Mechanic Other Information That Helps Us Care for You: No Feels Safe at Home: Yes Safety Concerns: Feels Safe At This Time Childhood Exposure to Second-Hand Smoke: Yes Dental Care, Regularly: Yes Physical Activity Frequency: Daily Seatbelt Use: always Sunscreen Use: No Assistive Devices: Denture - Upper, Denture - Lower and Glasses Review of Systems Review of Systems: All systems reviewed & are unremarkable except as noted in HPI & below Physical Exam Constitutional: well developed and well nourished; no acute distress Respiratory: normal respiratory effort; no respiratory distress and no labored breathing Musculoskeletal: Head/Neck/Chest: normocephalic Neurologic: moves all extremities and awake Psychiatric: Orientation: alert and oriented x 3 Genitourinary: Bladder distended on palpation Patient gave verbal consent for Good catheter placement. Urojet was placed via urethra. Patient was prepped and draped in typical sterile fashion. A well- lubricated 18 Italian coud catheter was placed via urethra. Catheter advanced without issue and was hubbed, but there was no urine output. Catheter was then removed. Results & Data Vital Signs (Past 12 Hours) Vital Signs Temp Pulse Pulse Resp BP Pulse Ox O2 Del Method 04/12/24 10:00 68 18 96 Room Air 04/12/24 08:04 18 04/12/24 08:02 79 04/12/24 07:31 36.8 C 86 20 131/77 95 Room Air PG Care Time/CCT Total # of Minutes Spent Total Time Spent with Patient: Total time spent is greater than 50% in coordination of care (as documented) at patient's floor/unit and/or counseling patient: Coding Level of Care Code 77907 INT INP/OBS CARE 375MIN Diagnoses BPH (benign prostatic hyperplasia) N40.0 Acute urinary retention R33.8 Acute UTI (urinary tract infection) N39.0
--- NOTE | 2024-04-12 12:25 | Anesthesiology Consultation ---
Date of Service April 12, 2024 Assessment & Plan Chart Review Chart Review: Acceptable Risk for Surgery and Patient NOT seen in Pre Admission Testing History Surgery Operation Date: 04/12/24 12:35 Proposed Procedures p Cystoscopy Catheter Placement - Corby Gomez DO Height/Weight Height: 5 ft 11 in Weight: 105.1 kg Allergies Allergy/AdvReac Type Severity Reaction Status Date / Time atorvastatin [From Lipitor] AdvReac Mild myalgia Verified 02/16/24 15:28 Medications Home Medications Medication Instructions Recorded Confirmed Last Taken aspirin 81 mg tablet,delayed 81 mg PO QAM 02/16/19 04/12/24 07/24/21 release (Adult Low Dose Aspirin) celecoxib 200 mg capsule 200 mg PO DAILY #90 caps 10/20/23 04/12/24 Unknown sildenafil (pulm.hypertension) 20 20 mg PO DAILY PRN sexual activity 11/03/23 04/12/24 Unknown mg tablet #90 tabs tadalafil 5 mg tablet 5 mg PO DAILY #90 tabs 11/03/23 04/12/24 Unknown acetaminophen 500 mg capsule 500 mg PO DAILY PRN Pain 11/04/23 04/12/24 Unknown amoxicillin 500 mg capsule 500 mg PO UD PRN dental procedures 11/04/23 04/12/24 Unknown #4 caps esomeprazole magnesium 40 mg 40 mg PO DAILY #90 caps 11/04/23 04/12/24 Unknown capsule,delayed release ezetimibe 10 mg tablet (Zetia) 10 mg PO DAILY #90 tabs 11/18/23 04/12/24 Unknown losartan 50 mg tablet 50 mg PO QAM #90 tabs 01/20/24 04/12/24 Unknown metoprolol succinate 50 mg 25 mg PO QAM 02/16/24 04/12/24 Unknown tablet,extended release 24 hr rosuvastatin 40 mg tablet 40 mg PO QPM #90 tabs 03/23/24 04/12/24 Unknown cephalexin 500 mg capsule 500 mg PO BID 04/12/24 04/12/24 Unknown phenazopyridine 100 mg tablet 100 mg PO DIRECTED PRN Other 04/12/24 04/12/24 Unknown Past Medical History Medical History Epigastric pain Postherpetic neuralgia Screening PSA (prostate specific antigen) Shingles outbreak Abdominal pain, acute, right upper quadrant Cognitive and behavioral changes Sleep apnea History of COVID-19 (~02/2020) loss sense of smell. no other symptoms. no current problems Right rotator cuff tear Osteoarthritis of right knee Arthritis of right knee Hiatal hernia Bladder stone Tear of biceps muscle Obesity Diverticular disease GERD (gastroesophageal reflux disease) controlled Degenerative disc disease Left inguinal hernia Depression Past Family History Family History Unknown Colon cancer Coronary heart disease Heart disease Hypertension Father Myocardial infarction Grandfather (Maternal) Prostate cancer Mother Colon cancer Other No family history of adverse response to anesthesia Denies family history of Ovarian cancer Breast cancer Past Surgical History Surgical History History of repair of rotator cuff right History of right knee joint replacement (~03/2020) History of cardiac cath 2013- no stents, subsequently transported to [facility] for CABG/MVR History of prostate biopsy x3 Hx of inguinal hernia surgery (03/18/19) Open Left Inguinal Hernia Repair with Mesh: 03/18/19: LMA at [facility] History of esophagogastroduodenoscopy (EGD) History of colonoscopy Hx of transurethral resection of prostate S/P right knee arthroscopy History of amputation right hand, 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/P decompression of ulnar nerve at elbow Right Hx of appendectomy with umbilical hernia repair H/O hernia repair right inguinal as an infant Social History Smoking Status: Never smoker tobacco type: smokeless tobacco Do You Dip or Chew Tobacco: No (hx of quit 2012) Hx Alcohol Use: Yes Alcohol type: beer alcohol intake frequency: a few times a month Hx Substance Use: No substance use type: does not use Substance Use Type Other:: CBD OIL 10 MG SL QAM Physical Exam Vital Signs Last Vital Signs Temp 36.8 C 04/12/24 07:31 Pulse 74 04/12/24 12:15 Resp 18 04/12/24 12:15 BP 121/80 04/12/24 12:15 Pulse Ox 96 04/12/24 12:15 O2 Del Method Room Air 04/12/24 12:15 Testing Laboratory Results 04/12/24 08:00 04/12/24 08:00 Urine Color Dark Yellow 04/12/24 08:00 Urine Appearance Cloudy (Clear) A 04/12/24 08:00 Urine pH 6.5 (4.5-7.5) 04/12/24 08:00 Ur Specific [place] 1.017 (1.000-1.030) 04/12/24 08:00 Urine Protein 2+ (Negative) H 04/12/24 08:00 Urine Glucose (UA) Negative (Negative) 04/12/24 08:00 Urine Ketones 1+ (Negative) H 04/12/24 08:00 Urine Nitrite Positive (Negative) A 04/12/24 08:00 Ur Leukocyte Esterase 2+ (Negative) H 04/12/24 08:00 Urine WBC (Auto) >50 /hpf (0-5) H 04/12/24 08:00 Urine RBC (Auto) 6-10 /hpf (0-2) H 04/12/24 08:00 U Hyaline Cast (Auto) 3-5 /lpf (0-2) H 04/12/24 08:00 U Epithel Cells (Auto) 0-2 /hpf (0-2) 04/12/24 08:00 Urine Bacteria (Auto) None Seen (None Seen) 04/12/24 08:00
[2024-04-12] MEDS ORDERED: ONDANSETRON INJ 2 MG/ML 2 ML VIAL IV PRN ×2 (12:46→13:43)
[2024-04-12] MEDS ORDERED: Nursing to Pharmacy Communication SCH (13:15)
[2024-04-12] MEDS: LACTATED RINGER'S 1,000 ML IV SCH (13:35)
[2024-04-12] MEDS ORDERED: HYDROmorphone INJ 1 MG/ML SYRINGE IV PRN (13:43)
[2024-04-12] MEDS ORDERED: ePHEDrine sulfate 50 MG/ML AMP IV PRN (13:43)
[2024-04-12] MEDS ORDERED: fentaNYL citrate PF 100 MCG/2 ML VIAL IV PRN (13:43)
[2024-04-12] MEDS ORDERED: ATROPINE SULFATE 0.1 MG/ML 10ML SYR IV PRN (13:43)
[2024-04-12] MEDS ORDERED: fentaNYL citrate PF 100 MCG/2 ML VIAL ONE (14:24)
[2024-04-12] MEDS ORDERED: MIDAZOLAM HCL 1 MG/ML 2ML VIAL ONE (14:24)
[2024-04-12] MEDS ORDERED: LIDOCAINE 2% 2 ML VIAL/AMP(20MG/ML) INFIL ONE (14:31)
[2024-04-12] MEDS ORDERED: PROPOFOL IV EMULSION 10 MG/ML 20 ML VIAL IV ONE ×3 (14:31→14:36)
[2024-04-12] MEDS ORDERED: KETAMINE HCL 10MG/ML SYR ONE (14:32)
--- NOTE | 2024-04-12 14:56 | Operative Report ---
PG Post Operative Report Pre & Post Diagnosis Urinary Retention Same Operation Date: 04/12/24 12:35 <No data on this case meets the specified criteria> I identified the patient and participated in the time-out.: Yes Procedure Cystoscopy with urethral dilation, clot evacuation, and difficult catheter placement. Operation Date: 04/12/24 12:35 <No data on this case meets the specified criteria> Surgeon Corby Gomez, II, DO Concessionist None Estimated Blood Loss 1 Findings Consistent with Post-Op Diagnosis Clot debris within the bladder. Meatus dilated due to stricture. Stricture along the pendulous urethra. Severe enlargement of the prostate with fusion of the lateral lobes and massive median lobe with severe inflammatory changes. Moderate amount of clot material in the base of the bladder. Severe inflammation around the bladder neck. Mo derate inflammation within the bladder. Specimens None Drains 20 Turkish gulkana tip catheter Anesthesia Type MAC Complications none Disposition Disposition: Recovery Room Indications Patient with concern for urethral stricture. Risks and benefits discussed at length. Description of Procedure Patient was consented and brought back to the operating room. Patient was placed under anesthesia in the supine position and moved to the dorsal lithotomy position. Patient was prepped and draped in the regular sterile fashion. A time out was completed. The meatus was dilated due to narrowing. A 30 degree Cystoscope was placed into the urethra. The scope was advanced and a significant narrowing/stricture was discovered in the urethra. A flexible wire was able to be manipulated into the opening. The strictures were then dilated. The scope was then advanced. The area was inspected. The scope was then advanced to the prostatic urethra. Within the prostatic urethra there was significant prostatic enlargement with very large lateral lobes with kissing/fusion of the lateral lobes. This had sig nificantly narrowed the area. The scope was able to advance through the lateral lobes there was a large varicosities and significant inflammatory changes likely prostatitis. The median lobe was found to be severely enlarged and projecting into the bladder with the large amount of edematous changes. The scope was able to move past the neck of the bladder and the entire bladder was examined. The UO's were identified as well as the bladder neck, trigone, dome, and the other important landmarks. No lesions/suspicious areas were identified. Significant/severe inflammation was noted along the bladder neck and the large median lobe there was significant inflammatory changes in the bladder likely due to overdistention of the bladder there was moderate amount of blood clot/debris in the base of the bladder. This was evacuated out. No obvious stones were discovered. No significant active bleeding was noted. The bladder was inspected a final time. The scope was removed. No considerable bleeding from the dilated areas. The wire remained in placed. A gulkana tip catheter was placed over the wire and positioned into the bladder and set to drainage. The patient was cleaned, aroused from anesthesia, and transferred to the pacu in stable condition having tolerated the procedure well with no complications. I was present and participated in all aspects of the procedure. The patient will be monitored in the PACU until transferred. Catheter will remain until followup for removal. Plan to maintain catheter for 10 to 14 days with reevaluation in the office discussed different options for severe prostate enlargement I attest to the content of the Intraoperative Record and any orders documented therein. Any exceptions are noted below.
--- NOTE | 2024-04-12 15:22 | Anesthesiology Progress Note ---
Date of Service April 12, 2024 Anesthesia Post Procedure Vital Signs Vital Signs: Temp Pulse Pulse Pulse Resp BP BP 04/12/24 15:15 36.8 C 72 21 122/73 04/12/24 15:05 71 24 124/82 04/12/24 14:56 37.2 C 82 24 109/72 04/12/24 14:25 72 04/12/24 14:24 84 04/12/24 13:26 36.7 C 72 20 118/75 04/12/24 12:46 04/12/24 12:24 73 18 130/85 04/12/24 12:15 74 18 04/12/24 10:00 68 18 04/12/24 08:04 18 04/12/24 08:02 79 04/12/24 07:31 36.8 C 86 20 131/77 BP Pulse Ox Pulse Ox O2 Del Method O2 Del Method O2 Flow Rate 04/12/24 15:15 95 Room Air 04/12/24 15:05 98 Oxymask 5 04/12/24 14:56 98 Oxymask 11 04/12/24 14:25 04/12/24 14:24 04/12/24 13:26 91 Room Air 04/12/24 12:46 98 Room Air 04/12/24 12:24 98 Room Air 04/12/24 12:15 121/80 96 Room Air 04/12/24 10:00 96 Room Air 04/12/24 08:04 04/12/24 08:02 04/12/24 07:31 95 Room Air Pain Intensity Pelvic: Pain Intensity: 10 Penis: Pain Intensity: 3 Transfer of Care Handoff Completed per policy Notes Mental Status: alert / awake / arousable and participated in evaluation Patient Amnestic to Procedure: Yes Nausea / Vomiting: adequately controlled Pain: adequately controlled Airway Patency, RR, SpO2: stable & adequate BP & HR: stable & adequate Hydration State: stable & adequate Anesthetic Complications: no major complications apparent and Pt Satisfied with anesthetic care
[2024-04-12] MEDS: ROSUVASTATIN CALCIUM 20 MG TAB PO SCH (20:32)
[2024-04-12] MEDS: ACETAMINOPHEN 325 MG TAB PO PRN (20:32)
[2024-04-12] MEDS: PHENAZOPYRIDINE HCL 100 MG TAB PO PRN (23:13)
[2024-04-12] MEDS: MELATONIN 3 MG TAB PO PRN (23:13)
[2024-04-13] MEDS ORDERED: LACTATED RINGER'S 1,000 ML IV SCH (06:00)
--- NOTE | 2024-04-13 07:40 | Urology Progress Note ---
Date of Service April 13, 2024 Assessment & Plan (1) BPH with obstruction/lower urinary tract symptoms: (2) Acute urinary retention: (3) Acute UTI (urinary tract infection): Plan: 69-year-old male with history of BPH and lower urinary tract symptoms admitted for acute urinary retention and concern for UTI. Patient POD #1 s/p Cystoscopy with urethral dilation, clot evacuation, and difficult catheter placement Patient currently afebrile and hemodynamically stable No new labs today at time of visit today Urine and blood cultures are pending De patent and draining appropriately Plan to keep catheter for approximately 10-14 days Okay to gently hand irrigate catheter as needed for catheter obstruction Continue with broad-spectrum antibiotics and tailor per sensitivities when available Recommend start Tamsulosin and consider addition of 5-MINERVA Gemtesa added for presumed bladder spasms Will arrange outpatient follow-up with our service for catheter removal and ongoing management will sign off, please contact our service with any additional questions, concerns or changes in clinical status Admission and Anticipated Discharge Date Admission Date: April 12, 2024 Subjective Patient seen and examined at bedside this morning. He is awake and resting in bed. No acute issues overnight, though he reports poor sleep. De intact. He reports intermittent urgency sensation. Reports fever last night. No fever or chills at present. No nausea or vomiting. Review of Systems Constitutional: as per Subjective / HPI Genitourinary: + as per Subjective / HPI Physical Exam Constitutional: well developed and well nourished; no acute distress Respiratory: normal respiratory effort; no respiratory distress and no labored breathing Gastrointestinal (Abdomen): Inspection/Auscultation: abdomen normal to inspection Musculoskeletal: Head/Neck/Chest: normocephalic Neurologic: moves all extremities and awake Psychiatric: Orientation: alert and oriented x 3 Genitourinary: De draining yellow with blood tinged urine Results & Data Vital Signs (Past 12 Hours) Vital Signs Temp Pulse Pulse Pulse Resp BP BP 04/13/24 07:36 36.8 C 82 20 132/78 04/13/24 07:06 105 H 04/13/24 03:33 36.7 C 75 14 131/78 04/12/24 22:20 37.2 C 91 H 14 114/71 04/12/24 21:45 93 H Pulse Ox O2 Del Method 04/13/24 07:36 93 Room Air 04/13/24 07:06 04/13/24 03:33 94 Room Air 04/12/24 22:20 91 Room Air 04/12/24 21:45 PG Care Time/CCT Total # of Minutes Spent Total Time Spent with Patient: Total time spent is greater than 50% in coordination of care (as documented) at patient's floor/unit and/or counseling patient: Coding Level of Care Code 10998 SUB INP/OBS CARE 04/03MIN Diagnoses BPH with obstruction/lower urinary tract symptoms N40.1; N13.8 Acute urinary retention R33.8 Acute UTI (urinary tract infection) N39.0
[2024-04-13] MEDS: PANTOprazole 40 MG TAB PO SCH (08:07)
[2024-04-13] MEDS: LOSARTAN POTASSIUM 50 MG TAB PO SCH (08:07)
[2024-04-13] MEDS: METOPROLOL SUCC 25MG EXT REL TAB PO SCH (08:07)
[2024-04-13] MEDS: EZETIMIBE 10 MG TAB PO SCH (08:07)
[2024-04-13 08:31] LABS: Basophils # (auto) 0.03 K/uL (0.00-0.20); Basophils % (auto) 0.2 %; Eosinophils # (auto) 0.01 K/uL (0.00-0.50); Eosinophils % (auto) 0.1 %; Hematocrit (blood only) 38.8 % (42.0-52.0); Hemoglobin 13.2 g/dl (14.0-18.0); Immature Granulocytes # (auto) 0.09 K/uL (0.01-0.20); Immature Granulocytes % (auto) 0.6 %; Lymphocytes # (auto) 1.02 K/uL (1.20-3.40); Lymphocytes % (auto) 6.6 %; Mean Corpuscular Hemoglobin 31.7 pg (25.0-34.0); Mean Platelet Volume 10.6 fL (9.4-12.4); Monocytes # (auto) 1.58 K/uL (0.11-0.59); Monocytes % (auto) 10.2 %; Neutrophils # (auto) 12.69 K/uL (1.40-6.50); Neutrophils % (auto) 82.3 %; Platelet Count 222 K/uL (130-400); RDW Coefficient of Variation 12.6 % (11.5-14.5); RDW Standard Deviation 43.8 fL (36.4-46.3); Red Blood Count 4.17 M/uL (4.70-6.10); White Blood Count 15.42 K/ul (4.8-10.8)
[2024-04-13 08:58] LABS: BUN Creatinine Ratio 15.2 (10-20); Calcium 9.8 mg/dl (8.6-10.3); Potassium 3.7 mmol/L (3.5-5.1)
[2024-04-13] MEDS: VIBEGRON 75 MG TAB PO SCH (09:21)
[2024-04-13] MEDS: cefTRIAXone SODIUM 2,000 MG/50 ML BAG IV SCH (09:51)
[2024-04-13] MEDS: TAMSULOSIN HCL 0.4 MG CAP PO SCH (21:10)
--- NOTE | 2024-04-13 23:09 | Hospitalist Progress Note ---
Date of Service April 13, 2024 Assessment & Plan (1) Acute UTI (urinary tract infection): (2) Acute urinary retention: (3) Hematuria: (4) BPH (benign prostatic hyperplasia): Jace Manjarrez is a pleasant 69yo male with PMH of CABG, mitral valve repair, BPH, DANUTA, HTN, HLD, and CAD. He presented on 04/12 for dysuria, difficulty voiding, and burning with urination that began on Sunday 04/09. He originally went to [facility] on Friday, and was prescribed cephalexin and phenazopyridine for UTI. However, despite taking these medications, his symptoms have progressively worsened. He denies prior history of UTIs or kidney stones. He is still able to void approximately a "quarter cup" of urine, but this leads to severe, sharp pain, and he cannot void without screaming. He characterizes it as "peeing razor blades". #UTI Failure of outpatient antibiotics on Keflex (Rx 04/10) Leukocytosis at 20.12 with neutral predominance; afebrile on arrival, but reported fever/chills at home Blood cultures ordered, pending Procalcitonin WNL UA dark yellow; without bacteria (but in the setting of recent Keflex) No prior UCx on record Ceftriaxone 2000 mg IV q24h Acetaminophen as needed for pain/fever Continue phenazopyridine Follow current UCx: remains negative. leukocytosis improving. fever curve improving. #Difficulty voiding A/P CT revealed enlarged prostate and mildly distended bladder No evidence of urinary calculi, however A/P CT was performed with contrast Nursing staff has been unable to place a Good in the ED Urology consult appreciated Continue tadalafil #Gross hematuria Hgb 14.8 on arrival Patient reports he takes aspirin daily for history of CAD/CABG He denies history of heart stents Hold aspirin for now Chronic stable issues: #HTNlosartan, metoprolol #GERDesomeprazole #HLDezetimibe, rosuvastatin #BPHtadalafil Disposition: Admit to [facility] Full code Regular diet VTE PPx: SCDs reviewed h and p Admission and Anticipated Discharge Date Admission Date: April 12, 2024 Subjective 69 yo male reports feeling better. Patient reports pain when he tries to urinate sathish the good catheter, Physical Exam Constitutional: WD/WN, vitals as above Respiratory: normal respiratory effort, lungs clear to auscultation Cardiovascular: RRR, no murmur, no edema Genitourinary: good catheter noted Results & Data Results & Data Vital Signs (Past 12 Hours) Vital Signs Temp Pulse Pulse Resp BP BP Pulse Ox 04/13/24 20:03 37.1 C 70 17 121/73 94 04/13/24 15:20 36.7 C 73 18 125/76 95 04/13/24 14:04 74 04/13/24 11:10 36.3 C L 70 18 125/79 94 O2 Del Method 04/13/24 20:03 Room Air 04/13/24 15:20 Room Air 04/13/24 14:04 04/13/24 11:10 Room Air PG Care Time/CCT Total # of Minutes Spent Total Time Spent with Patient: Total time spent is greater than 50% in coordination of care (as documented) at patient's floor/unit and/or counseling patient: Coding Level of Care Code 08762 SUB INP/OBS CARE 3/50MIN Diagnoses Acute UTI (urinary tract infection) N39.0 Acute urinary retention R33.8 Hematuria R31.9 BPH (benign prostatic hyperplasia) N40.0
[2024-04-14 07:50] LABS: Hematocrit (blood only) 38.2 % (42.0-52.0); Hemoglobin 13.2 g/dl (14.0-18.0); Mean Corpuscular Hemoglobin 31.3 pg (25.0-34.0); Mean Corpuscular Hgb Conc 34.6 g/dL (32.0-36.0); Mean Corpuscular Volume 90.5 fL (80.0-100.0); Mean Platelet Volume 9.9 fL (9.4-12.4); Platelet Count 224 K/uL (130-400); RDW Coefficient of Variation 12.5 % (11.5-14.5); RDW Standard Deviation 41.5 fL (36.4-46.3); Red Blood Count 4.22 M/uL (4.70-6.10); White Blood Count 11.75 K/ul (4.8-10.8)
[2024-04-14 08:10] LABS: Albumin Globulin Ratio 1.1 (0.9-2); Albumin Level 3.6 gm/dl (3.4-5.0); BUN Creatinine Ratio 13.5 (10-20); Bilirubin,Total 0.4 mg/dl (0.2-1.0); C Reactive Protein 17.8 mg/dl (0-0.5); Calcium 9.9 mg/dl (8.6-10.3); Creatinine Clr Calc Pharmacy 95.1 ml/min; Globulin 3.4 gm/dl (2.5-4.0); Potassium 3.7 mmol/L (3.5-5.1)
--- NOTE | 2024-04-14 22:59 | Hospitalist Progress Note ---
Date of Service April 14, 2024 Assessment & Plan (1) Acute UTI (urinary tract infection): (2) Acute urinary retention: (3) Hematuria: (4) BPH (benign prostatic hyperplasia): Jace Manjarrez is a pleasant 69yo male with PMH of CABG, mitral valve repair, BPH, DANUTA, HTN, HLD, and CAD. He presented on 04/12 for dysuria, difficulty voiding, and burning with urination that began on Sunday 04/09. He originally went to [facility] on Friday, and was prescribed cephalexin and phenazopyridine for UTI. However, despite taking these medications, his symptoms have progressively worsened. He denies prior history of UTIs or kidney stones. He is still able to void approximately a "quarter cup" of urine, but this leads to severe, sharp pain, and he cannot void without screaming. He characterizes it as "peeing razor blades". #UTI Failure of outpatient antibiotics on Keflex (Rx 04/10) Leukocytosis at 20.12 with neutral predominance; afebrile on arrival, but reported fever/chills at home Blood cultures ordered, pending Procalcitonin WNL UA dark yellow; without bacteria (but in the setting of recent Keflex) No prior UCx on record Ceftriaxone 2000 mg IV q24h Acetaminophen as needed for pain/fever Continue phenazopyridine Follow current UCx: remains negative. leukocytosis improving. fever curve improving. De will remain in place for 14 days, this was placed >6 hours after antibiotics were started. continue flomax #Difficulty voiding A/P CT revealed enlarged prostate and mildly distended bladder No evidence of urinary calculi, however A/P CT was performed with contrast Nursing staff has been unable to place a De in the ED Urology consult appreciated Continue tadalafil #Gross hematuria Hgb 14.8 on arrival Patient reports he takes aspirin daily for history of CAD/CABG He denies history of heart stents Hold aspirin for now Chronic stable issues: #HTNlosartan, metoprolol #GERDesomeprazole #HLDezetimibe, rosuvastatin #BPHtadalafil Disposition: Admit to [facility] Full code Regular diet VTE PPx: SCDs reviewed h and p Admission and Anticipated Discharge Date Admission Date: April 12, 2024 Subjective Patient reports improvement. Physical Exam Constitutional: WD/WN, vitals as above Respiratory: normal respiratory effort, lungs clear to auscultation Cardiovascular: RRR, no murmur, no edema Results & Data Results & Data Vital Signs (Past 12 Hours) Vital Signs Temp Pulse Pulse Resp BP Pulse Ox O2 Del Method 04/14/24 20:08 36.5 C 87 20 148/82 H 95 Room Air 04/14/24 15:16 36.7 C 81 18 132/82 93 Room Air 04/14/24 14:51 101 H 04/14/24 12:31 04/14/24 11:50 36.9 C 84 20 127/78 93 Room Air O2 Del Method 04/14/24 20:08 04/14/24 15:16 04/14/24 14:51 04/14/24 12:31 Room Air 04/14/24 11:50 PG Care Time/CCT Total # of Minutes Spent Total Time Spent with Patient: Total time spent is greater than 50% in coordination of care (as documented) at patient's floor/unit and/or counseling patient: Coding Level of Care Code 83133 SUB INP/OBS CARE 2/35MIN Diagnoses Acute UTI (urinary tract infection) N39.0 Acute urinary retention R33.8 Hematuria R31.9 BPH (benign prostatic hyperplasia) N40.0
[2024-04-15] MEDS: POLYETHYLENE (MIRALAX) 17 GM PACK PO PRN (06:45)
[2024-04-15 07:03] LABS: Hematocrit (blood only) 39.6 % (42.0-52.0); Hemoglobin 13.6 g/dl (14.0-18.0); Mean Corpuscular Hemoglobin 31.8 pg (25.0-34.0); Mean Corpuscular Hgb Conc 34.3 g/dL (32.0-36.0); Mean Corpuscular Volume 92.5 fL (80.0-100.0); Mean Platelet Volume 9.8 fL (9.4-12.4); Platelet Count 260 K/uL (130-400); RDW Coefficient of Variation 12.5 % (11.5-14.5); RDW Standard Deviation 42.7 fL (36.4-46.3); Red Blood Count 4.28 M/uL (4.70-6.10)
[2024-04-15 07:22] LABS: BUN Creatinine Ratio 13.9 (10-20); C Reactive Protein 12.56 mg/dl (0-0.5); Creatinine Clr Calc Pharmacy 84.2 ml/min; Potassium 3.9 mmol/L (3.5-5.1)
[2024-04-15 11:35] VITALS: TEMP 98.1
--- NOTE | 2024-04-15 16:01 | Urology Progress Note ---
Date of Service April 15, 2024 Assessment & Plan (1) Acute urinary retention: Plan: Follow-up of urinary retention Patient is s/p cystoscopy with dilation and catheter placement on 04/12/[address] Gomez De patent and draining appropriately Maintain catheter until follow-up with urology Reassurance provided that discharge around catheter is consistent with smegma Recommend routine catheter care with soap and water Recommend continue with Tamsulosin at discharge Continue with Gemtesa for bladder spasms Outpatient follow-up in place will sign off Admission and Anticipated Discharge Date Admission Date: April 12, 2024 Subjective Asked by hospitalist this afternoon to revisit patient due to concern of discharge around catheter. Patient seen and examined at bedside. He reports he went to the bathroom to have a bowel movement and noted some discharge on his underwear. He has some mild discomfort where the catheter inserts. Also notes occasional sensation of urinary urgency. No fever or chills. De intact. Review of Systems Constitutional: as per Subjective / HPI Genitourinary: + as per Subjective / HPI Physical Exam Constitutional: no acute distress Respiratory: no respiratory distress and no labored breathing Neurologic: moves all extremities and awake Psychiatric: Orientation: alert and oriented x 3 Genitourinary: De patent and draining clear yellow urine. Small amount of dried carreon smegma around catheter. Results & Data Vital Signs (Past 12 Hours) Vital Signs Temp Pulse Pulse Resp BP Pulse Ox O2 Del Method 04/15/24 11:34 36.7 C 79 20 136/82 94 Room Air 04/15/24 08:00 36.4 C L 98 H 18 134/83 95 Room Air 04/15/24 07:50 83 PG Care Time/CCT Total # of Minutes Spent Total Time Spent with Patient: Total time spent is greater than 50% in coordination of care (as documented) at patient's floor/unit and/or counseling patient: Coding Level of Care Code 54746 SUB INP/OBS CARE 04/03MIN Diagnoses Acute urinary retention R33.8
[2024-04-15 16:17] VITALS: RESP 18; O2SAT 93
[2024-04-15 16:34] VITALS: BP 148/82; PULSE 91
== END 2024-04-15 16:54 | disposition home or self-care (01) | DRG 697 ==
LOC: ED 07:24 → 2N 11:55 → SUATTDRO 11:55 → 2N 12:24
DX: Z79.82 Long term (current) use of aspirin; N41.9 Inflammatory disease of prostate, unspecified; I25.10 Atherosclerotic heart disease of native coronary artery without angina pectoris; N39.0 Urinary tract infection, site not specified; Z87.891 Personal history of nicotine dependence; K21.9 Gastro-esophageal reflux disease without esophagitis; I34.0 Nonrheumatic mitral (valve) insufficiency; N32.89 Other specified disorders of bladder; R33.8 Other retention of urine; E78.5 Hyperlipidemia, unspecified; I10 Essential (primary) hypertension; Z95.1 Presence of aortocoronary bypass graft; G47.33 Obstructive sleep apnea (adult) (pediatric); N40.1 Benign prostatic hyperplasia with lower urinary tract symptoms; N35.919 Unspecified urethral stricture, male, unspecified site; R31.0 Gross hematuria